=== PATIENT | female | born 1990 ===

== ENCOUNTER 2020-05-28 13:28 | Outpatient (REF) | payer MEDICAID, SELFPAY ==
--- NOTE | 2020-05-28 13:31 | XR_ITS ---
EXAMINATION: XR PELVIS CLINICAL INFORMATION: Pain COMPARISON: None TECHNIQUE: AP view of the pelvis. FINDINGS: Bone alignment is normal. No fracture or dislocation is seen. The hip joints are normal. Bones of the pelvis are normal. Soft tissues are normal. XR/XR pelvis 1-2V IMPRESSION: Normal pelvis.
== END 2020-05-28 13:29 | disposition home or self-care (01) ==
LOC: HO.HOSX 13:28
PROVIDERS: PCP Internal Medicine; Referring Provider Internal Medicine; Visit Provider Orthopaedic Surgery
DX: M25.559 Pain in unspecified hip (principal); Q65.89 Other specified congenital deformities of hip
CPT/HCPCS: 72170; 99202